=== PATIENT | female | born 1955 | race Caucasian/White ===

== ENCOUNTER → 2019-02-26 | Outpatient (CLI) | payer BC | LOC: MC.RAD 08:45 | DX: Z12.31 Encounter for screening mammogram for malignant neoplasm of breast (principal) ==

== ENCOUNTER → 2021-12-23 | Outpatient (CLI) | payer BC | LOC: MC.RAD 10-18 10:30 | DX: Z12.31 Encounter for screening mammogram for malignant neoplasm of breast (principal) ==

== ENCOUNTER → 2023-08-08 | Outpatient (CLI) | payer BC | LOC: COL.RAD 10:19 | DX: M19.012 Primary osteoarthritis, left shoulder (principal); M75.102 Unspecified rotator cuff tear or rupture of left shoulder, not specified as traumatic ==